=== PATIENT | male | born 2000 | race Caucasian/White ===

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

== ENCOUNTER 2020-07-25 08:14 | Emergency (ER) | payer BC, OTHER ==
[~2020-07-25] VITALS: Ht 190.5 cm; Wt 165.0 kg
[2020-07-25 08:28] VITALS: BP 175/73
[2020-07-25] MEDS ORDERED: METH4TAB3 PO (08:56)
[2020-07-25] MEDS ORDERED: AMOX-422 PO (08:56)
== END 2020-07-25 09:10 | disposition home or self-care (01) ==
LOC: ER 08:14
DX: H66.92 Otitis media, unspecified, left ear (principal); R05 Cough; R09.89 Other specified symptoms and signs involving the circulatory and respiratory systems; Z79.899 Other long term (current) drug therapy
CPT/HCPCS: 99283